=== PATIENT | female | born 1955 | race Caucasian/White ===

== ENCOUNTER 2020-02-15 10:08 | Outpatient (CLI) | payer OTHER, SELFPAY ==
--- NOTE | ~2020-02-15 | MM_ITS ---
EXAMINATION: MM screening [facility] BI w john paul HISTORY: Screening mammogram TECHNIQUE: Craniocaudal and mediolateral oblique 3-D tomosynthesis images were obtained and synthetic 2-D images were generated. CAD analysis was submitted and interpreted. COMPARISON: 01/31/2019 bilateral digital screening mammogram 02/03/2018 diagnostic right digital mammogram 01/27/2018, 03/18/2017 bilateral digital screening mammogram examinations BREAST PARENCHYMAL COMPOSITION: There are scattered areas of fibroglandular density... FINDINGS: There is no evidence of suspicious mass, calcification, or architectural distortion to sugg est malignancy in either breast. There has been no suspicious interval change. IMPRESSION: 1. No mammographic evidence of malignancy. 2. Recommend routine screening mammography in one year. BI-RADS Category 1: Negative Reviewed, dictated and finalized at location A.
== END 2020-02-15 10:09 | disposition home or self-care (01) ==
LOC: ANHIMG 10:10
PROVIDERS: PCP Family Medicine; Visit Provider Physician Assistant
DX: Z12.31 Encounter for screening mammogram for malignant neoplasm of breast (principal)
CPT/HCPCS: 77063; 77067

== ENCOUNTER 2021-03-06 09:39 | Outpatient (CLI) | payer MEDICARE, SELFPAY ==
--- NOTE | ~2021-03-06 | DEXA_ITS ---
Bone Density Report Name: Sana Hernandez Age: 66 Sex: Female Ethnicity: White Date of : 1955 Indication: osteopenia; height loss; postmenopausal Referring Provider: RADHAMES BENNETT Study: Bone densitometry was performed. Exam Date: March 06, 2021 Accession number: [id number] Bone Density: Region BMD T-score Z-score Classification AP Spine (L1-L4) 0.696 -3.2 -1.4 Osteoporosis Femoral Neck (Left) 0.588 -2.4 -0.8 Osteopenia Total Hip (Left) 0.740 -1.7 -0.4 Osteopenia Total Hip Bilateral Avg 0.724 -1.8 -0.5 Osteopenia Femoral Neck (Right) 0.585 -2.4 -0.8 Osteopenia Total Hip (Right) 0.707 -1.9 -0.6 Osteopenia World Health Organization criteria for BMD impression classify patients as: Normal (T-score at or above -1.0), Osteopenia (T-score between -1.0 and -2.5), or Osteoporosis (T-score at or below -2.5). 10-year Fracture Risk: FRAX not reported because: Some T-score for Spine Total or Hip Total or Femoral Neck at or below -2.5 Previous Exams: Region Exam Age BMD T-score BMD Change BMD Change Date g/cm2 vs Baseline vs Previous AP Spine(L1-L4) 03/06/2021 66 0.696 -3.2 -0.158(-18.5%) -0.120(-14.7%) 05/22/2010 55 0.816 -2.1 -0.038(-4.4%)* -0.038(-4.4%)* 02/14/2008 52 0.854 -1.8 Total Hip(Left) 03/06/2021 66 0.740 -1.7 -0.106(-12.5%) -0.075(-9.3%)# 05/22/2010 55 0.816 -1.0 -0.030(-3.6%)* -0.030(-3.6%)* 02/14/2008 52 0.846 -0.8 Total Hip(Right) 03/06/2021 66 0.707 -1.9 -0.143(-16.8%) -0.090(-11.3%) 05/22/2010 55 0.797 -1.2 -0.052(-6.2%)* -0.052(-6.2%)* 02/14/2008 52 0.850 -0.8 *Denotes significance at 95% confidence level, LSC for AP Spine = 0.022 g/cm2, LSC for Total Hip = 0.027 g/cm2 Clinical Information Provided by Patient: Has used the following medications: Calcium Patient maximum height was 63 Menopause Age: 50 Does not regularly consume dairy products Drinks caffeinated beverages Onset of menses at age 14 Number of children 3 Impression: The patient has osteoporosis, based on the Total Spine T-score. No significant bone loss was observed. Discussion: INCREASED RISK OF FRACTURE. BONE DENSITY IS UNDESIRABLY LOW AT ONE OR MORE SKELETAL SITES, CONSISTENT WITH POSTMENOPAUSAL OSTEOPOROSIS. This patient's lowest T-score meets the World Health Organization's (WHO) criteria for osteoporosis at one or more sites (T-score -2.5 or below). In untreated patients, the risk of osteoporotic fracture increases approx
--- NOTE | ~2021-03-06 | MM_ITS ---
EXAMINATION: MM screening [facility] BI w john paul HISTORY: Screening TECHNIQUE: Craniocaudal and mediolateral oblique 3-D tomosynthesis images were obtained and synthetic 2-D images were generated. CAD analysis was submitted and interpreted. COMPARISON: Comparison to multiple prior studies sequentially, with oldest reviewed study dated 11/2015. BREAST PARENCHYMAL COMPOSITION: There are scattered areas of fibroglandular density. FINDINGS: There is no evidence of suspicious mass, calcification, or architectural distortion to sugg est malignancy in either breast. There has been no suspicious interval change. IMPRESSION: 1. No mammographic evidence of malignancy. 2. Recommend routine screening mammography in one year. BI-RADS Category 1: Negative Reviewed, dictated and finalized at location A.
== END 2021-03-06 09:40 | disposition home or self-care (01) ==
PROVIDERS: PCP Family Medicine; Visit Provider Physician Assistant
DX: Z12.31 Encounter for screening mammogram for malignant neoplasm of breast (principal); Z78.0 Asymptomatic menopausal state; Z13.820 Encounter for screening for osteoporosis; M81.0 Age-related osteoporosis without current pathological fracture; M85.851 Other specified disorders of bone density and structure, right thigh; M85.852 Other specified disorders of bone density and structure, left thigh
CPT/HCPCS: 77063; 77067; 77080

== ENCOUNTER 2021-12-10 10:13 | Outpatient (CLI) | payer MEDICARE, SELFPAY ==
--- NOTE | ~2021-12-10 | US_ITS ---
EXAMINATION: US pelvic complete DATE: 12/10/2021 11:00 INDICATION: Postmenopausal bleeding TECHNIQUE: Multiple transabdominal and endovaginal sonographic images of the pelvis were obtained. COMPARISON: None. FINDINGS: The uterus measures 8.6 x 2.9 x 4.7 cm. The endometrial complex measures 10 mm. The right o vary measures 2.4 x 1.0 x 1.6 cm. The left ovary measures 2.0 x 1.1 x 1.6 cm. There is normal vascula r flow in the ovaries. There is no free fluid in the pelvis. IMPRESSION: 1. Endometrial thickening which may be due to hyperplasia, polyp, or malignancy. Endometrial sampling is recommended. Reviewed, dictated and finalized at location A. IMPRESSION: 1. Endometrial thickening which may be due to hyperplasia, polyp, or malignancy . Endometrial sampling is recommended.
== END 2021-12-10 10:14 | disposition home or self-care (01) ==
PROVIDERS: PCP Family Medicine; Visit Provider Physician Assistant
DX: N93.9 Abnormal uterine and vaginal bleeding, unspecified (principal); R93.89 Abnormal findings on diagnostic imaging of other specified body structures
CPT/HCPCS: 76856

== ENCOUNTER 2022-03-11 09:58 | Outpatient (CLI) | payer MEDICARE, SELFPAY ==
--- NOTE | ~2022-03-11 | MM_ITS ---
EXAMINATION: MM screening [facility] BI w john paul HISTORY: Screening mammogram TECHNIQUE: Craniocaudal and mediolateral oblique 3-D tomosynthesis images were obtained and synthetic 2-D images were generated. CAD analysis was submitted and interpreted. COMPARISON: 03/06/2021, 02/15/2020, 01/31/2019 BREAST PARENCHYMAL COMPOSITION: There are scattered areas of fibroglandular density. FINDINGS: RIGHT BREAST: There is a possible mass in the posterior third of the upper breast. LEFT BREAST: There is no suspicious mass, calcification, or architectural distortion to suggest malig kamran. There has been no significant interval change. IMPRESSION: 1. Possible right breast mass. 2. Additional mammographic views and possible breast ultrasound are recommended. BI-RADS Category 0: Incomplete: Needs additional imaging evaluation. Reviewed, dictated and finalized at location A. IMPRESSION: 1. Possible right breast mass. 2. Additional mammographic views and possible breast ultrasound are recommended . BI-RADS Category 0: Incomplete: Needs additional imaging evaluation.
== END 2022-03-11 09:59 | disposition home or self-care (01) ==
PROVIDERS: PCP Family Medicine; Visit Provider Physician Assistant
DX: Z12.31 Encounter for screening mammogram for malignant neoplasm of breast (principal); R92.8 Other abnormal and inconclusive findings on diagnostic imaging of breast
CPT/HCPCS: 77063; 77067

== ENCOUNTER 2022-04-02 10:49 | Outpatient (CLI) | payer MEDICARE, SELFPAY ==
--- NOTE | ~2022-04-02 | MM_ITS ---
EXAMINATION: MM diagnostic neil RT w john paul HISTORY: Possible right breast mass on screening mammogram TECHNIQUE: Additional 3-D tomosynthesis images of the right breast were performed and synthetic 2-D i mages were generated. CAD analysis was submitted and interpreted. COMPARISON: 112, 03/06/2021, 02/05/2020 FINDINGS: There is a return to baseline fibroglandular appearance with spot compression of the right breast in the area questioned on screening mammogram. IMPRESSION: 1. No mammographic evidence of malignancy. 2. Recommend routine screening mammography in one year. BI-RADS Category 1: Negative Reviewed, dictated and finalized at location A.
== END 2022-04-02 10:50 | disposition home or self-care (01) ==
LOC: ANHIMG 10:50
PROVIDERS: PCP Family Medicine; Visit Provider Family Medicine
DX: R92.8 Other abnormal and inconclusive findings on diagnostic imaging of breast (principal)
CPT/HCPCS: 77061; 77065; G0279

== ENCOUNTER 2023-05-11 08:17 | Outpatient (CLI) | payer MEDICARE, SELFPAY ==
--- NOTE | ~2023-05-11 | MM_ITS ---
CORRECTED REPORTS exam description [facility] [place] 05/12/23 This report was recreated on 05/12/23. Original report was INATION: MM screening neil BI w john paul HISTORY: Screening mammogram TECHNIQUE: Craniocaudal and mediolateral oblique 3-D tomosynthesis images were obtained and synthetic 2-D images were generated. CAD analysis was submitted and interpreted. COMPARISON: 04/02/2022 diagnostic right mammogram, reported negative 03/11/2022, 03/06/2021, 02/15/2020 bilateral screening mammogram examinations BREAST PARENCHYMAL COMPOSITION: There are scattered areas of fibroglandular density. FINDINGS: There is no evidence of suspicious mass, calcification, or architectural distortion to suggest malignancy in either breast. There has been no suspicious interval change. IMPRESSION: 1. No mammographic evidence of malignancy. 2. Recommend routine screening mammography in one year. BI-RADS Category 1: Negative Reviewed, dictated and finalized at location A. MTDD
--- NOTE | ~2023-05-11 | DEXA_ITS ---
Bone Density Report Name: LAQUITA MCKEON Age: 68 Sex: Female Ethnicity: White Date of : 1955 Indication: postmenopausal; screening for osteoporosis; height loss; Referring Provider: ZA ALDANA Study: Bone densitometry was performed. Exam Date: May 11, 2023 Accession number: [id number] Bone Density: Region BMD T-score Z-score Classification AP Spine(L1-L4) 0.706 -3.1 -1.1 Osteoporosis Femoral Neck (Left) 0.653 -1.8 -0.1 Osteopenia Total Hip (Left) 0.726 -1.8 -0.4 Osteopenia Femoral Neck (Right) 0.580 -2.4 -0.7 Osteopenia Total Hip (Right) 0.716 -1.8 -0.4 Osteopenia Total Hip Mean 0.721 -1.8 -0.4 Osteopenia World Health Organization criteria for BMD impression classify patients as: Normal (T-score at or above -1.0), Osteopenia (T-score between -1.0 and -2.5), or Osteoporosis (T-score at or below -2.5). 10-year Fracture Risk: FRAX not reported because: Some T-score for Spine Total or Hip Total or Femoral Neck at or below -2.5 Treated for osteoporosis Clinical Information Provided by Patient: Is being treated for osteoporosis Has used the following medications: Fosamax (i.e. alendronate), Vitamin D, Calcium Patient maximum height was 63 Menopause Age: 50 Does not regularly consume dairy products Drinks caffeinated beverages Onset of menses at age 10 Number of children 3 Impression: The patient has osteoporosis, based on the Total Spine T-score. Discussion: It is important to ask patients whether they are taking their medications and to encourage continued and appropriate compliance with their osteoporosis therapies to reduce fracture risk. It is also important to review their risk factors and encourage appropriate calcium and vitamin D intakes, exercise, fall prevention and other lifestyle measures. Follow-Up: Consider a repeat BMD and Vertebral Fracture Assessment (VFA) exam in 2 years or sooner if medically necessary, to reassess this patient's status. Reported by: HERACLIO on 05/11/2023 8:53:00 AM. Reviewed, dictated and finalized at location AMichael HUERTAS
== END 2023-05-11 08:18 | disposition home or self-care (01) ==
LOC: ANHIMG 08:23
PROVIDERS: PCP Family Medicine; Visit Provider Physician Assistant
DX: Z12.31 Encounter for screening mammogram for malignant neoplasm of breast (principal); Z78.0 Asymptomatic menopausal state; M81.0 Age-related osteoporosis without current pathological fracture; M85.89 Other specified disorders of bone density and structure, multiple sites
CPT/HCPCS: 77063; 77067; 77080

== ENCOUNTER 2024-05-22 08:21 | Outpatient (CLI) | payer MEDICARE, SELFPAY ==
--- NOTE | ~2024-05-22 | MM_ITS ---
EXAMINATION: MM screening neil BI w john paul HISTORY: Screening TECHNIQUE: Craniocaudal and mediolateral oblique 3-D tomosynthesis images were obtained and synthetic 2-D images were generated. CAD analysis was submitted and interpreted. COMPARISON: Comparison to multiple prior studies sequentially, with oldest reviewed study dated 09/2018. BREAST PARENCHYMAL COMPOSITION: Not dense: There are scattered areas of fibroglandular density. FINDINGS: There is no evidence of suspicious mass, calcification, or architectural distortion to sugg est malignancy in either breast. There has been no suspicious interval change. IMPRESSION: 1. No mammographic evidence of malignancy. 2. Recommend routine screening mammography in one year. BI-RADS Category 1: Negative Reviewed, dictated and finalized at location B.
== END 2024-05-22 08:22 | disposition home or self-care (01) ==
LOC: ANHIMG 08:26
PROVIDERS: PCP Family Medicine; Visit Provider Physician Assistant
DX: Z12.31 Encounter for screening mammogram for malignant neoplasm of breast (principal)
CPT/HCPCS: 77063; 77067

== ENCOUNTER 2025-06-25 00:12 | Day surgery (SDC) | payer MEDICARE, SELFPAY ==
[2025-06-10 13:29] VITALS: BMI 19.2
--- OUTSIDE RECORDS SUMMARY | 2025-06-25 00:17 | XMS_ITS | Clinical Summary ---
Author Organization [facility] [place] [address] Address [address] [place] [address] Care Team Providers Care Slitter Processed Film Name Role Phone Anders Berg MD Primary Care Provider [phone] Allergies Active Allergy Reactions Criticality Noted Date Comments Cyclobenzaprine Unknown 10/05/2021 Other Other (See comments) Low 10/05/2021 Anvcort-HC Medications alendronate (FOSAMAX) 70 mg tablet 08/23/2021 Active uhjdelpg99-tayd- Lmfolate-algal 27 mg iron-1.13 mg-581.92 mg capsule Take by mouth Active flaxseed oiL oil Act av GAS RELIEF, SIMETHICONE, ORAL Take by mouth Active calcium carbonate (CALTRATE 600 ORAL) Take by mouth Active red yeast rice 600 mg capsule Take by mouth Active Active Problems Problem Noted Date Diagnosed Date Syncope and collapse 10/05/2021 Hypercholesterolemia 10/05/2021 Surgical History Surgery Date Site/Laterality Comments SECTION TONSILLECTOMY SKIN GRAFT Medical History Medical History Date Comments Syncope Dizzy Hyperlipidemia Family History Medical History Relation Name Comments Gun Shot Father Dementia Mother Relation Name Status Comments Father (Age 51) Mother (Age 83) Social History Tobacco Use Types Packs/Day Years Used Date Smoking Tobacco: Former Cigarettes Q uit: 1982 Smokeless Tobacco: Never Tobacco Cessation:Counseling Given: Not Answered Personal Safety Answer Date Recorded Getting School Help Needed Not on file 10/01 Comments Unknown Sex and Gender Information Value Date Recorded Sex Assigned at Not on file 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 Gender Identity Not on file Sexual Orientation Not on file Last Filed Vital Signs Vital Sign Reading Time Taken Comments Blood Pressure 110/60 04/12/2022 10:53 AM CDT Pulse 74 04/12/2022 10:53 AM CDT Temperature - - Respiratory Rate - - Oxygen Saturation 99% 04/12/2022 10: 53 AM CDT Inhaled Oxygen Concentration - - Weight 51.2 kg (112 lb 12.8 oz) 022 10:53 AM CDT Height 157.5 cm (5' 2) 04/12/2022 10:5 3 AM CDT Body Mass Index 20.63 04/12/2022 10:53 AM CDT Plan of Treatment Not on file Insurance [facility] MDCR HMO REF [facility] MEDICARE Address: [facility] [address] [place] [address] Care Teams Slitter Processed Film Relationship Specialty Start Date End Date Anders Berg MD [address] [place] [id number] PCP - General Family Medicine 09/28/21
[2025-06-25 06:57] VITALS: BP 125/72; PULSE 82; RESP 16; TEMP 36.6; O2SAT 100; BMI 18.2
[2025-06-25] MEDS: LACTATED RINGERS 1,000 ML 150 ML IV CONT (07:11)
--- NOTE | 2025-06-25 07:38 | WPDANESEPPF ---
Anes - Initial Pre Proc Eval Procedure: Operation Date: 06/25/25 08:30 Proposed Procedures p Screening Colonoscopy - Familia Billingsley DO Date/Time: 06/25/25 07:38 Surgeon: Familia Billingsley DO Pre Op Diagnosis: Neoplasm screening Patient Data Age: 70 Gender: F Height: 1.57 m Weight: 45.2 kg Last Vital Signs Temp 97.8 F 06/25/25 06:57 Pulse 82 06/25/25 06:57 Resp 16 06/25/25 06:57 BP 125/72 06/25/25 06:57 Pulse Ox 100 06/25/25 06:57 O2 Del Method Room Air 06/25/25 06:57 Allergies Allergy/AdvReac Type Severity Reaction Status Date / Time codeine Allergy Intermediate Dyspnea / Verified 06/25/25 06:56 SOB hydrocortisone Allergy Intermediate Rash Verified 06/25/25 06:56 cyclobenzaprine Allergy Mild Eye Issues Verified 06/25/25 06:56 Home Medications ?Medication ?Instructions ?Recorded ?Confirmed ?Type acetaminophen 500 mg tablet 500 mg PO Q6H PRN pain #30 tabs 01/21/23 06/10/25 Rx (Tylenol Extra Strength) iyvdgnxu-zuyq-ivdw 8 mg-folic 400 1 tablet PO DAILY #30 tabs 01/21/23 06/25/25 Rx mcg-K 50 mcg-lutein 300 mcg tablet (Centrum Silver Women) simethicone 125 mg capsule (Gas 500 mg (4 x 125 mg) PO DAILY PRN 01/21/23 06/10/25 Rx Relief (simethicone)) abdominal distention #60 caps atorvastatin 10 mg tablet 10 mg PO QHS #30 tabs 01/08/25 06/25/25 Rx alendronate 70 mg tablet See Rx Instructions .Route 02/11/25 06/10/25 Rx .COMPLEX #12 tabs azithromycin 250 mg tablet See Rx Instructions PO .COMPLEX #6 06/10/25 06/10/25 Rx tabs Patient hx anesthesia problems: none Family hx anesthesia problems: none Results Review: All pre-operative results and documents have been reviewed as part of the pre-operative evaluation. [facility] Past Medical History Medical History Osteoporosis Pure hypercholesterolemia, unspecified Surgical History Surgical History History of breast surgery cyst removal History of D&C 1997 History of skin graft History of tonsillectomy Family History Family History Father No problems noted. Mother Hypertension Hypothyroidism Grandparent Diabetes mellitus Cancer Social History Social History Smoking status: Former smoker Tobacco type: cigarettes Alcohol intake: current Substance use: never Substance use type: does not use Do You Feel Safe in your Home?: Yes Lack of Transportation: No Lack of Food: Never True Current Housing: I Have Housing Concerned About Future Housing: No Difficulty Paying Gas/Electric Bills: No Difficulty Paying for Meds: No Currently Unemployed: YES Education: High School Diploma/GED Difficulty w/ Childcare or Family Care: No Living arrangements: with family Occupation/Education: unemployed Gender identity (if verbalized by the patient): Female Sexual Orientation (if Verbalized by the Patient): Straight or Heterosexual Spiritual care concerns: No Anes - Eval Final PreProcedure Day of Procedure 06/25/25 07:38 Patient weight: normal and thin Lungs: normal air movement Airway: Mallampati scale class II Neurological: alert and oriented Last oral intake: >/= 8 hours ASA classification: I Emergent: no Anesthetic plan: proceed Anesthesia type and monitoring: general GIVS and standard monitoring Results Review: All pre-operative results and documents have been reviewed as part of the pre-operative evaluation. Hyperlipidemia, pt walks 3 miles/day, no cp or sob. Informed Consent: The patient's anesthetic plan and its attendant risks and benefits were discussed with the patient/family/POA. Questions were solicited and answers provided to the satisfaction of the patient/family/POA.
--- NOTE | 2025-06-25 07:56 | PM.IMHP ---
H&P: HPI History of Present Illness Date/Time: 06/25/25 07:56 Chief Complaint: Screening for colorectal cancer Narrative: This is a 70-year-old woman who presents for colonoscopy. Her last colonoscopy was 10 years ago and was normal. She denies hematochezia or melena. She denies family history of colon cancer. Review of Systems Review of Systems: All systems reviewed & are unremarkable except as noted in HPI and below Constitutional: Constitutional: Denies chills, Denies fever(s), Denies headache(s) and Denies weight loss Eyes: Eyes: Denies change in vision ENT: Denies dizziness, Denies headache(s), Denies neck mass and Denies throat swelling Cardiovascular: Cardiovascular: Denies chest pain, Denies lightheadedness and Denies dyspnea Respiratory: Respiratory: Denies cough, Denies dyspnea and Denies wheezing Gastrointestinal: Gastrointestinal: Denies abdominal pain, Denies change in bowel habits, Denies nausea and Denies vomiting Genitourinary: Genitourinary: Denies hematuria and Denies dysuria Musculoskeletal: Musculoskeletal: Reports as per HPI Integumentary/Breasts: Skin/Breast: Reports as per HPI Neurologic: Denies dizziness and Denies headache(s) Allergic/Immunologic: Allergic/Immunologic: Denies throat swelling and Denies wheezing PMFSH Past Medical History Medical History Osteoporosis Pure hypercholesterolemia, unspecified Surgical History Surgical History History of breast surgery cyst removal History of D&C 1997 History of skin graft History of tonsillectomy Family History Family History Father No problems noted. Mother Hypertension Hypothyroidism Grandparent Diabetes mellitus Cancer Social History Social History Smoking status: Former smoker Tobacco type: cigarettes Alcohol intake: current Substance use: never Substance use type: does not use Do You Feel Safe in your Home?: Yes Lack of Transportation: No Lack of Food: Never True Current Housing: I Have Housing Concerned About Future Housing: No Difficulty Paying Gas/Electric Bills: No Difficulty Paying for Meds: No Currently Unemployed: YES Education: High School Diploma/GED Difficulty w/ Childcare or Family Care: No Living arrangements: with family Occupation/Education: unemployed Gender identity (if verbalized by the patient): Female Sexual Orientation (if Verbalized by the Patient): Straight or Heterosexual Spiritual care concerns: No Meds Home Medications and Allergies Home Medications ?Medication ?Instructions ?Recorded ?Confirmed ?Type acetaminophen 500 mg tablet 500 mg PO Q6H PRN pain #30 tabs 01/21/23 06/10/25 Rx (Tylenol Extra Strength) pkvgrnuu-hssc-azmg 8 mg-folic 400 1 tablet PO DAILY #30 tabs 01/21/23 06/25/25 Rx mcg-K 50 mcg-lutein 300 mcg tablet (Centrum Silver Women) simethicone 125 mg capsule (Gas 500 mg (4 x 125 mg) PO DAILY PRN 01/21/23 06/10/25 Rx Relief (simethicone)) abdominal distention #60 caps atorvastatin 10 mg tablet 10 mg PO QHS #30 tabs 01/08/25 06/25/25 Rx alendronate 70 mg tablet See Rx Instructions .Route 02/11/25 06/10/25 Rx .COMPLEX #12 tabs azithromycin 250 mg tablet See Rx Instructions PO .COMPLEX #6 06/10/25 06/10/25 Rx tabs Allergies Allergy/AdvReac Type Severity Reaction Status Date / Time codeine Allergy Intermediate Dyspnea / Verified 06/25/25 06:56 SOB hydrocortisone Allergy Intermediate Rash Verified 06/25/25 06:56 cyclobenzaprine Allergy Mild Eye Issues Verified 06/25/25 06:56 Vital Signs Vital Signs - 24 hr 06/25/25 06:57 Temperature 97.8 F Pulse Rate 82 Respiratory Rate 16 Blood Pressure 125/72 Pulse Oximetry 100 Oxygen Delivery Room Air Exam Const: General: no acute distress and alert Orientation/consciousness: patient oriented x3 HENMT: Head: normocephalic and atraumatic Ears: hearing grossly normal bilaterally Face/Nose/Sinus: Normal nares present Mouth: Yes Normal oral and palatal mucosa present Eyes: Periorbital: periorbital findings normal Sclera: sclerae normal EOM: EOMs intact bilaterally Neck: Neck: normal visual inspection, no lymphadenopathy and trachea midline Chest: Chest palpation & inspection: normal inspection of the chest Resp: Effort & Inspection: normal respiratory effort Auscultation: clear to auscultation bilaterally Cardio: Jugular venous distension: no JVD Rate: regular rate Rhythm: regular rhythm Heart sounds: S1 normal heart sound present and S2 normal heart sound present Peripheral pulses: Peripheral pulses 2+ throughout GI: Inspection: normal to inspection GI Palp: Yes Soft to palpation, No Tenderness to palpation present (GI), No Guarding due to palpation present (GI) and No Rebound tenderness present Percussion: Yes normal to percussion Auscultation: normal bowel sounds : General: Yes no CVA tenderness Back/Spine/Pelvis: Back: no CVA tenderness Neuro: General: patient oriented x3, no focal motor deficits and CN's II-XI intact bilaterally Cognition (Neuro): normal cognition Speech: normal speech Motor exam (neuro): 5/5 motor strength present throughout Extrem: General: capillary refill normal and no clubbing, cyanosis or edema Assessment and Plan Assessment and plan (1) Screening for colorectal cancer: Code(s): Z12.11 - Encounter for screening for malignant neoplasm of colon; Z12.12 - Encounter for screening for malignant neoplasm of rectum Status: Acute Assessment and Plan: I have recommended colonoscopy. I have discussed the procedure, risks, benefits, and alternatives. Questions were answered. Patient is agreeable to proceed.
--- NOTE | 2025-06-25 08:32 | S_PTH ---
PATIENT: Sana Hernandez LOC: ECHO U#:[id number] AGE/SX: 70/F ROOM: RE06/25/[address]: Familia Billingsley DO : 1955 BED: DIS: 06/25/2025 SPEC #: [id number] RECD: 06/25/25 09:49 STATUS: HERMINIA REKristina #: [id number] PEBBLES: 06/25/25 08:[address]: Familia Billingsley DEPT: [facility] Surgical RECD BY: Concetta Etienne ENTERED: 06/25/25 09:49 SP TYPE: Surgical OTHR DR: Anders Berg MD Tissues: A - Colon Polypectomy Procedures: Hematoxylin and Eosin Stain Gross and Microscopic Level 4
[2025-06-25 08:36] VITALS: BP 87/41; PULSE 61; RESP 13; O2SAT 100
[2025-06-25 08:46] VITALS: BP 82/40; PULSE 68; RESP 17; O2SAT 100
[2025-06-25 08:56] VITALS: BP 92/54; PULSE 65; RESP 15; O2SAT 100
[2025-06-25 09:06] VITALS: BP 104/60; PULSE 65; RESP 17; O2SAT 100
== END 2025-06-25 09:12 | disposition home or self-care (01) ==
PROVIDERS: PCP Family Medicine; Visit Provider Surgery
PROC: 0DJD8ZZ Inspection of Lower Intestinal Tract, Via Natural or Artificial Opening Endoscopic (ICD-10-PCS; CPT 45378; principal; 2025-06-25 08:30)
DX: Z12.11 Encounter for screening for malignant neoplasm of colon (principal); D12.0 Benign neoplasm of cecum; K57.30 Diverticulosis of large intestine without perforation or abscess without bleeding; M81.0 Age-related osteoporosis without current pathological fracture; E78.00 Pure hypercholesterolemia, unspecified; Z79.83 Long term (current) use of bisphosphonates; Z98.890 Other specified postprocedural states; Z87.891 Personal history of nicotine dependence; Z80.9 Family history of malignant neoplasm, unspecified
CPT/HCPCS: 45380; 88305; J2003; J2704; J7120

== ENCOUNTER 2025-07-18 13:22 | Outpatient (CLI) | payer MEDICARE, SELFPAY ==
--- NOTE | ~2025-07-18 | DEXA_ITS ---
Bone Density Report Name: LAQUITA MCKEON Age: 70 Sex: Female Ethnicity: White Date of : 1955 Indication: postmenopausal osteoporosis; monitoring treatment; height loss; Referring Provider: MANNIE WOOD Study: Bone densitometry was performed. Exam Date: July 18, 2025 Accession number: [id number] Bone Density: Region BMD T-score Z-score Classification AP Spine(L1-L4) 0.688 -3.3 -1.1 Osteoporosis Femoral Neck (Left) 0.604 -2.2 -0.4 Osteopenia Total Hip (Left) 0.701 -2.0 -0.5 Osteopenia Femoral Neck (Right) 0.574 -2.5 -0.7 Osteoporosis Total Hip (Right) 0.656 -2.3 -0.8 Osteopenia Total Hip Mean 0.678 -2.2 -0.7 Osteopenia World Health Organization criteria for BMD impression classify patients as: Normal (T-score at or above -1.0), Osteopenia (T-score between -1.0 and -2.5), or Osteoporosis (T-score at or below -2.5). 10-year Fracture Risk: FRAX not reported because: Some T-score for Spine Total or Hip Total or Femoral Neck at or below -2.5 Treated for osteoporosis Previous Exams: Region Exam Age BMD T-score BMD Change BMD Change Date g/cm2 vs Baseline vs Previous AP Spine (L1-L4) 07/18/2025 70 0.688 -3.3 -0.008 (-1.2%) -0.018 (-2.5%) 05/11/2023 68 0.706 -3.1 0.009 (1.4%)# 0.009 (1.4%)# 03/06/2021 66 0.696 -3.2 Total Hip(Left) 07/18/2025 70 0.701 -2.0 -0.039 (-5.3%) -0.025 (-3.4%) 05/11/2023 68 0.726 -1.8 -0.014 (-1.9%) -0.014 (-1.9%) 03/06/2021 66 0.740 -1.7 Total Hip(Right) 07/18/2025 70 0.656 -2.3 -0.051 (-7.3%) -0.060 (-8.4%) 05/11/2023 68 0.716 -1.8 0.009 (1.3%)# 0.009 (1.3%)# 03/06/2021 66 0.707 -1.9 *Denotes significance at 95% confidence level, LSC for AP Spine = 0.022 g/cm2, LSC for Total Hip = 0.027 g/cm2 # Denotes dissimilar scan types or analysis methods Clinical Information Provided by Patient: Is being treated for osteoporosis Has used the following medications: Fosamax (i.e. alendronate), Vitamin D, Calcium Patient maximum height was 63 Menopause Age: 50 Does not regularly consume dairy products Drinks caffeinated beverages Onset of menses at age 10 Number of children 3 Impression: The patient has osteoporosis, based on the Total Spine T-score. No significant bone loss was observed. Discussion: PATIENT UNDER TREATMENT WITH NO SIGNIFICANT BMD LOSS SINCE LAST EXAM. In an untreated patient, BMD typically declines with age. A lack of decline or gain is usually a sign that treatment is efficacious and fracture risk is reduced. It is important to ask patients whether they are taking their medications and to encourage continued and appropriate compliance with their osteoporosis therapies to reduce fracture risk. It is also important to review their risk factors and encourage appropriate calcium and vitamin D intakes, exercise, fall prevention and other lifestyle measures. Follow-Up: Consider a repeat BMD and Vertebral Fracture Assessment (VFA) exam in 2 years or sooner if medically necessary, to reassess this patient's status. Reported by: POLLO on 07/18/2025 2:05:00 PM. Reviewed, dictated and finalized at location A.
--- NOTE | ~2025-07-18 | MM_ITS ---
EXAMINATION: MM screening neil BI w john paul HISTORY: Screening TECHNIQUE: Craniocaudal and mediolateral oblique 3-D tomosynthesis images were obtained and synthetic 2-D images were generated. CAD analysis was submitted and interpreted. COMPARISON: Comparison to multiple prior studies sequentially, with oldest reviewed study dated 02/15/2020. BREAST PARENCHYMAL COMPOSITION: Dense: The breasts are heterogeneously dense, which may obscure small masses FINDINGS: There is no evidence of suspicious mass, calcification, or architectural distortion to suggest malignancy in either breast. There has been no suspicious interval change. IMPRESSION: 1. No mammographic evidence of malignancy. 2. Recommend routine screening mammography in one year. BI-RADS Category 1: Negative Reviewed, dictated and finalized at location O. BOARDER
--- OUTSIDE RECORDS SUMMARY | 2025-07-18 14:21 | XMS_ITS | Clinical Summary ---
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
== END 2025-07-18 13:23 | disposition home or self-care (01) ==
LOC: ANHFOHIMG 13:24
PROVIDERS: PCP Family Medicine
DX: Z12.31 Encounter for screening mammogram for malignant neoplasm of breast (principal); M81.0 Age-related osteoporosis without current pathological fracture; M85.89 Other specified disorders of bone density and structure, multiple sites; Z78.0 Asymptomatic menopausal state
CPT/HCPCS: 77063; 77067; 77080